=== PATIENT | male | born 1985 | race Caucasian/White ===

== ENCOUNTER 2017-01-29 01:47 | Emergency (ER) | payer BC, OTHER ==
[~2017-01-29] VITALS: Ht 170.2 cm; Wt 73.4 kg
[~2017-01-29 01:47] MED LIST: CLR5 PO; PXL20 PO
[2017-01-29 01:53] VITALS: TEMP 36.9; Ht 170.2 cm; Wt 73.4 kg
[2017-01-29] MEDS ORDERED: XYLOCAINE 1%/SOD BICARB 20 ML VIAL INFIL ONE (02:30)
--- NOTE | 2017-01-29 02:59 | EMERGENCY ROOM VISIT NOTE ---
ED Visit Note First contact with patient: 02:06 CHIEF COMPLAINT: Finger laceration HISTORY OF PRESENT ILLNESS: This 31-year-old male patient presents to the emergency department ambulatory after cutting the left third finger after slamming it in a car door. He states the laceration occurred approximately 12 hours ago. The bleeding has not stopped. Denies weakness or numbness of the finger. The patient has full range of motion of the fingers. The patient rates the pain as sharp and 1/10. The patient denies any other injuries. The patient' s tetanus shot is up to date. REVIEW OF SYSTEMS: A 6 system review of systems was completed with positives and pertinent negatives listed in the HPI. ALLERGIES: Sulfa drugs MEDICATIONS: Paxil, Clarinex PMH: No significant past medical history. SOCIAL HISTORY: The patient lives locally with family. PHYSICAL EXAM: Vital Signs: Reviewed Nurse's notes, vital signs stable. GENERAL : This is a 31-year-old male, in no acute distress, well developed, well nourished. SKIN: There is a 1 cm long laceration on the palmar aspect of the fingerpad of the left third finger. The edges gape apart with traction. There is no foreign material in the wound and it looks clean. There is minimal bleeding. No deep structures such as tendons, bones, or significant blood vessels are seen in the base of the wound. Extension and flexion of the finger is full and strong. Full range of motion of the wrist and other fingers. Capillary refill less than 2 seconds. Normal sensation to light and sharp touch. EMERGENCY DEPARTMENT COURSE: I examined the patient. Verbal consent was obtained to perform the procedure. Using sterile technique the wound was cleansed with Betadine. 1 mL of 1% buffered lidocaine was infiltrated into the laceration to achieve local anesthesia. The area was sterilely draped. Once the patient was anesthetized, the wound was copiously irrigated under pressure with sterile saline. The wound was explored and there were no deep structures injured. The laceration was repaired using 2 simple interrupted 5-0 nylon sutures. The patient tolerated the procedure well. Hemostasis was achieved. The area was cleaned with sterile saline and dressed with bacitracin ointment and bandage. The patient was discharged home in good condition. Medication reconciliation: I attest that I have personally reviewed the patient 's current medication list. Blood pressure screening: Patient was found to have normal blood pressure on screening and does not require follow-up. DIAGNOSIS: Finger laceration Current/Historical Medications Scheduled Desloratadine (Clarinex *), 5 MG PO DAY Paroxetine (Paxil *), 10 MG PO DAY Allergies Uncoded Allergies: SULPHA (Allergy, Unknown, HIVES SOB, 03/04/09) Vital Signs Date Time Temp Pulse Resp B/P (MAP) Pulse Ox O2 Delivery O2 Flow Rate FiO2 01/29/17 03:05 94 20 117/82 98 01/29/17 01:53 36.9 96 18 121/81 97 Room Air Departure Information Impression Primary Impression: Laceration of finger Dispostion Home / Self-Care Condition GOOD Referrals No Doctor, Assigned (PCP) Patient Instructions [facility] Additional Instructions You have received 2 sutures on your finger. These sutures are NOT dissolvable and WILL need to be removed by a health care provider in 8-10 days. You can return to the Emergency Department or contact your Primary Care Provider to have the sutures removed. Proper wound care is essential for adequate wound healing and infection prevention. You can shower and clean the wound with soap and water. Do not scour over the wound, pat dry with a towel. Do not submerse the wound (i.e. bathe or dish wash) until the sutures have been removed. You can use an antibiotic ointment with a dressing over the wound for the next 3-4 days. After this time you may leave the wound dry and open to the air. If crust develops over the wound you can use a Q-tip to apply a 1:1 peroxide:water solution to clean the wound. Look for signs of infection of the wound including: increased pain, swelling, foul discharge, streaking, or increased temperature. If any of these are noticed you should return to the Emergency Department for further assessment and treatment. As with any laceration you may have received nerve damage to the surrounding tissues. This damage may or may not be permanent. You should keep the area covered with sunscreen for the first 6 months to 1 year when at risk for exposure to help minimize scarring. You can also use scar reducing creams or Vitamin E oil to help minimize scarring. For pain control, you can use the following [id number] medicines (if >12 yo): - Regular strength (325mg/tab) Tylenol (acetaminophen) 2 tabs every 4-6 hours as needed. Do not exceed 12 tablets in a 24 hour period. Avoid taking more than 4 grams (4000 mg) of Tylenol per day. This includes any other sources of acetaminophen you may take on a regular basis. - Regular strength (200 mg/tab) Advil (ibuprofen) 1-2 tabs every 4-6 hours as needed. Do not exceed a dose of 3200 mg per day. Return to the emergency department if your symptoms worsen despite treatment course outlined above. Problem Qualifiers Primary Impression: Laceration of finger Encounter type: initial encounter Finger: middle finger Damage to nail status: without damage Foreign body presence: without foreign body Laterality: left Qualified Codes: S61.213A - Laceration without foreign body of left middle finger without damage to nail, initial encounter
[2017-01-29 03:05] VITALS: BP 117/82; PULSE 94; O2SAT 98
== END 2017-01-29 03:09 | disposition home or self-care (01) ==
LOC: C.EDB 01:48
DX: S61.213A Laceration without foreign body of left middle finger without damage to nail, initial encounter (principal); W23.0XXA Caught, crushed, jammed, or pinched between moving objects, initial encounter